=== PATIENT | female | born 1990 | race Caucasian/White ===

== ENCOUNTER 2018-07-16 12:14 | Emergency (ER) | payer MEDICAID, OTHER ==
[~2018-07-16] VITALS: Ht 167.6 cm; Wt 75.0 kg
[2018-07-16] MEDS ORDERED: CEFTRIAXONE SODIUM 1 G/VIAL IM ONE (14:30)
[2018-07-16] MEDS ORDERED: LIDOCAINE HCL 1% 20ML VIAL (Pyxis) INJ INFIL ONE (14:30)
[2018-07-16 15:24] VITALS: BP 105/75
== END 2018-07-16 15:24 | disposition home or self-care (01) ==
LOC: ER 12:14
DX: H05.012 Cellulitis of left orbit (principal); K21.9 Gastro-esophageal reflux disease without esophagitis; Z87.440 Personal history of urinary (tract) infections; Z87.09 Personal history of other diseases of the respiratory system
CPT/HCPCS: 96372; 99283; J0696; J3490

== ENCOUNTER 2019-02-18 14:47 | Emergency (ER) | payer SELFPAY ==
[~2019-02-18] VITALS: Ht 167.6 cm; Wt 72.0 kg
[2019-02-18] MEDS ORDERED: IBUPROFEN 400MG TABLET PO ONE (19:15)
[2019-02-18 19:41] VITALS: BP 115/64
== END 2019-02-18 19:42 | disposition home or self-care (01) ==
LOC: ER 17:14
DX: S80.01XA Contusion of right knee, initial encounter (principal); W18.39XA Other fall on same level, initial encounter; Y93.89 Activity, other specified; Y92.89 Other specified places as the place of occurrence of the external cause; Y99.8 Other external cause status
CPT/HCPCS: 73562; 81025; 99283

== ENCOUNTER 2020-05-08 10:55 | Emergency (ER) | payer MEDICAID ==
[~2020-05-08] VITALS: Ht 170.2 cm; Wt 73.0 kg
[2020-05-08] MEDS ORDERED: ACET-2708 PO (11:46)
[2020-05-08] MEDS ORDERED: ASPI-986 PO (11:46)
[2020-05-08] MEDS ORDERED: HYDROCODONE/ACETAMINOPHEN 5/325MG TABLET PO ONE (12:30)
[2020-05-08] MEDS ORDERED: ONDANSETRON 4MG ODT PO ONE (12:30)
[2020-05-08 12:31] VITALS: BP 126/79
[2020-05-08 12:33] LABS: *AMPHETAMINES SCREEN URINE NEGATIVE (NEGATIVE); *BARBITURATES SCREEN URINE NEGATIVE (NEGATIVE); *BENZODIAZEPINES SCREEN URINE NEGATIVE (NEGATIVE)
[2020-05-08 12:34] LABS: *COCAINE SCREEN URINE NEGATIVE (NEGATIVE); METHADONE URINE SCREEN NEGATIVE (NEGATIVE); OPIATES URINE SCREEN NEGATIVE (NEGATIVE); PHENCYCLIDINE URINE SCREEN NEGATIVE (NEGATIVE)
[2020-05-08 12:35] LABS: CANNABINOID URINE SCREEN NEGATIVE (NEGATIVE)
== END 2020-05-08 13:29 | disposition home or self-care (01) ==
LOC: ER 10:55
DX: K13.0 Diseases of lips (principal); S82.92XD Unspecified fracture of left lower leg, subsequent encounter for closed fracture with routine healing; V49.9XXD Car occupant (driver) (passenger) injured in unspecified traffic accident, subsequent encounter; R03.0 Elevated blood-pressure reading, without diagnosis of hypertension
CPT/HCPCS: 29515; 80305; 99283; Q0162